=== PATIENT | male | born 1975 | race Caucasian/White ===

== ENCOUNTER 2023-10-21 17:14 | Emergency (ER) | payer SELFPAY ==
[2023-10-21 17:21] VITALS: BP 157/92; PULSE 87; TEMP 36.6; O2SAT 97; BMI 33.0
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
[2023-10-21 19:53] VITALS: BP 157/92; PULSE 87; TEMP 36.6; O2SAT 97
== END 2023-10-21 19:52 | disposition home or self-care (01) ==
PROVIDERS: Emergency Provider Emergency Medicine; PCP Internal Medicine
DX: Z04.1 Encounter for examination and observation following transport accident (principal); V59.50XA Passenger in pick-up truck or van injured in collision with unspecified motor vehicles in traffic accident, initial encounter
CPT/HCPCS: 99283